=== PATIENT | male | born 1955 | race Caucasian/White ===

== ENCOUNTER 2019-09-20 23:51 | Emergency (ER) | payer OTHER ==
[2019-09-21 01:10] LABS: ABSOLUTE EOSINOPHILS # (AUTO) 0.2 10^3/uL (0.0-0.6); ABSOLUTE LYMPHOCYTES (AUTO) 1.8 10^3/uL (0.5-4.7); ABSOLUTE MONOCYTES (AUTO) 0.7 10^3/uL (0.1-1.4); ABSOLUTE NEUT (AUTO) 4.1 10^3/uL (1.7-8.2); BASOPHILS % (AUTO) 0.7 % (0-2); EOSINOPHILS % (AUTO) 3.2 % (0-6); LYMPHOCYTES % (AUTO) 26.6 % (13-45); MEAN CORPUSCULAR HEMOGLOBIN 31.2 pg (27.0-33.4); MEAN CORPUSCULAR HGB CONC 34.1 g/dL (32.0-36.0); MEAN CORPUSCULAR VOLUME 91 fl (80-97); MONOCYTES % (AUTO) 9.6 % (3-13); PLATELET COUNT 247 10^3/uL (150-450); RED BLOOD COUNT 4.49 10^6/uL (4.35-5.55); RED CELL DISTRIBUTION WIDTH 13.1 % (11.5-14.0); SEGMENTED NEUTROPHILS % (AUTO) 59.9 % (42-78); TOTAL CELLS COUNTED % (AUTO) 100 %; WHITE BLOOD COUNT 6.9 10^3/uL (4.0-10.5)
[2019-09-21 01:41] LABS: ALBUMIN 4.3 g/dL (3.5-5.0); ALKALINE PHOSPHATASE 46 U/L (38-126); ANION GAP 11 (5-19); ASPARTATE AMINO TRANSFERASE 26 U/L (17-59); BILIRUBIN,DIRECT 0.1 mg/dL (0.0-0.4); BILIRUBIN,TOTAL 0.4 mg/dL (0.2-1.3); BLOOD UREA NITROGEN 22 mg/dL (7-20); CALCIUM 9.6 mg/dL (8.4-10.2); CARBON DIOXIDE 25 mmol/L (22-30); CHLORIDE 102 mmol/L (98-107); CREATINE KINASE 279 U/L (55-170); GLUCOSE 100 mg/dL (75-110); POTASSIUM 4.1 mmol/L (3.6-5.0)
[2019-09-21 02:00] LABS: CREATINE KINASE MB 4.31 ng/mL (<4.55)
[2019-09-21 02:01] LABS: TROPONIN I < 0.012 ng/mL
--- NOTE | 2019-09-21 04:04 | RADIOLOGY REPORT (SQ) ---
CLINICAL HISTORY: difficulty swallowing. CREAT 1.13 COMPARISON: None. 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 FINDINGS: The visualized portions of the brain and orbits are normal. The oral cavity, oropharynx and nasopharynx are normal. The parapharyngeal fat planes are preserved. The hypopharynx is unremarkable. The parotid and submandibular glands are grossly within normal limits. No intrinsic mass lesions are seen. . The paranasal sinuses and mastoid air cells are clear. No definite pathologically enlarged lymph nodes are identified. The thyroid gland is normal in size and configuration. There is an incidental left SVC. The superior mediastinum and lung apices are normal. No acute osseous abnormalities are identified. IMPRESSION: No acute abnormalities within the neck.
[2019-09-21] MEDS ORDERED: CEFTRIAXONE 1 GM/D5W RTU 1 GM/50 ML RTUPB IV ONE (07:20)
--- NOTE | 2019-09-21 08:01 | ER Document Report ---
ED General - General Chief Complaint: Facial Swelling Stated Complaint: TROUBLE SWALLING/FACIAL SWELLING Time Seen by Provider: 09/21/19 07:07 Information source: Patient Notes: Patient presents complaining of difficulty swallowing. Patient has been recovering from a tooth #6 periapical abscess treated with clindamycin. Patient denies any shortness of breath. Denies any chest pain or shortness of breath or abdominal pain. Denies any rashes. He recently saw a dentist in the last few days. Denies trauma. No other complaints. TRAVEL OUTSIDE OF THE [place] IN LAST 30 DAYS: No - Related Data Allergies/Adverse Reactions: No Known Allergies Allergy (Unverified 08/17/15 14:09) Home Medications: flomax Past Medical History - Social History Smoking Status: Never Smoker Family History: Reviewed & Not Pertinent Patient has suicidal ideation: No Patient has homicidal ideation: No - Immunizations Hx Diphtheria, Pertussis, Tetanus Vaccination: Yes Review of Systems - Review of Systems Constitutional: denies: Chills, Fever EENT: Difficulty swallowing Cardiovascular: denies: Chest pain, Palpitations -: Yes All other systems reviewed and negative Physical Exam - Vital signs Vitals: Temp Pulse Resp BP Pulse Ox 98.5 F 67 18 159/91 H 98 09/21/19 00:20 09/21/19 00:20 09/21/19 00:20 09/21/19 00:20 09/21/19 00:20 - General General appearance: Appears well, Alert - HEENT Head: Normocephalic, Atraumatic Eyes: Normal Pupils: PERRL Mucous membranes: Moist Pharynx: Normal. No: Erythema, Retropharyngeal abscess, Uvular edema, Potential airway comprom. Neck: Normal Notes: NO TRISMUS - Respiratory Respiratory status: No respiratory distress Chest status: Nontender Breath sounds: Normal Chest palpation: Normal - Cardiovascular Rhythm: Regular Heart sounds: Normal auscultation Murmur: No - Abdominal Inspection: Normal Distension: No distension Bowel sounds: Normal Tenderness: Nontender Organomegaly: No organomegaly - Back Back: Normal, Nontender - Extremities General upper extremity: Normal inspection, Nontender, Normal color, Normal ROM, Normal temperature General lower extremity: Normal inspection, Nontender, Normal color, Normal ROM, Normal temperature, Normal weight bearing. No: Nelly's sign - Neurological Neuro grossly intact: Yes Cognition: Normal Orientation: AAOx4 Elida Coma Scale Eye Opening: Spontaneous Elida Coma Scale Verbal: Oriented Paron Coma Scale Motor: Obeys Commands Paron Coma Scale Total: 15 Speech: Normal Motor strength normal: LUE, RUE, LLE, RLE Sensory: Normal - Psychological Associated symptoms: Normal affect, Normal mood - Skin Skin Temperature: Warm Skin Moisture: Dry Skin Color: Normal Course - Re-evaluation Re-evalutation: 09/21/19 08:00 Labs reviewed. After observation in the emergency room for many hours patient's symptoms completely resolved. Patient is able to to eat and drink and speak without any difficulty whatsoever. I have ordered 1 dose of Rocephin here and patient will continue and finish his clindamycin at home. He will return at once if worse or new symptoms and follow-up with his doctor dentist tomorrow for recheck. 09/21/19 08:01 EKG per me shows normal sinus rhythm at a rate of [address] changes QRS axis is -12. - Vital Signs Vital signs: Temp Pulse Resp BP Pulse Ox 98.9 F 63 16 152/92 H 99 09/21/19 05:22 09/21/19 05:22 09/21/19 05:22 09/21/19 05:22 09/21/19 05:22 - Laboratory Result Diagrams: 09/21/19 00:55 09/21/19 00:55 Laboratory results interpreted by me: 09/21/19 00:55 BUN 22 H Creatine Kinase 279 H Discharge - Discharge Clinical Impression: Periapical abscess Condition: Good Disposition: HOME, SELF-CARE Instructions: Abscess ([facility]) Additional Instructions: Return at once if worse or new symptoms. Follow-up with your doctor for recheck tomorrow. Finish your clindamycin.
[2019-09-21 09:15] VITALS: BP 152/92
--- NOTE | 2019-09-21 16:22 | EKG REPORT ---
SEVERITY:- ABNORMAL ECG - SINUS RHYTHM ANTEROLATERAL INFARCT, OLD : Confirmed by: Margy Brower MD 21-Sep-2019 16:21:26
== END 2019-09-21 09:13 | disposition home or self-care (01) ==
LOC: ER 23:51
DX: K04.7 Periapical abscess without sinus (principal); R13.10 Dysphagia, unspecified; Z79.899 Other long term (current) drug therapy
CPT/HCPCS: 36415; 70491; 80053; 82550; 82553; 84484; 85025; 93005; 93010; 99284